=== PATIENT | female | born 1995 | race Caucasian/White ===

== ENCOUNTER → 2020-12-09 | Outpatient (CLI) | payer BC | END | disposition home or self-care (01) | LOC: US 10:00 | PROVIDERS: ATTEND Nurse Practitioner Women's Health | DX: Z33.1 Pregnant state, incidental (principal); Z3A.11 11 weeks gestation of pregnancy ==

== ENCOUNTER → 2020-12-18 | Outpatient (CLI) | payer BC ==
[2020-12-18 12:31] LABS: URINE AMPHETAMINES < 1000 (1000ng/ml); URINE BARBITURATES < 200 (200ng/ml); URINE BENZODIAZEPINES < 200 (200ng/ml); URINE CANNABINOIDS (THC) < 50 (50ng/ml); URINE COCAINE < 300 (300ng/ml); URINE METHADONE < 300 (300ng/ml); URINE OPIATES < 300 (300ng/ml)
[2020-12-18 12:32] LABS: BASO % 0.3 % (0.0-1.0); EOS # 0.1 10*3/uL (0.0-0.4); EOS % 1.2 % (1.0-4.0); HEMATOCRIT 36.5 % (37.0-47.0); LYMPH # 1.8 10*3/uL (1.3-4.4); LYMPH % 16.9 % (27.0-41.0); MEAN CELL VOLUME 76.7 fl (81.0-99.0); MEAN CORPUSCULAR HGB 22.9 pg (27.0-31.0); MEAN CORPUSCULAR HGB CONC 29.9 g/dl (33.0-37.0); MEAN PLATELET VOLUME 10.5 fl (9.6-12.3); MONO # 0.5 10*3/uL (0.1-1.0); MONO % 4.6 % (3.0-9.0); NEUT # 8.3 10*3/uL (2.3-7.9); NEUT % 76.4 % (47.0-73.0); PLATELET COUNT AUTOMATED 268 10*3/uL (130-400); RED BLOOD COUNT 4.76 10*6/uL (4.10-5.10); WHITE BLOOD COUNT 10.9 10*3/uL (4.8-10.8)
[2020-12-18 12:37] LABS: URINE PHENCYCLIDINE < 25 (25ng/ml)
[2020-12-19 05:08] LABS: HEP B CORE AB, IGM Negative (Negative); HEPATITIS B SURFACE AG Negative (Negative); HEPATITIS C VIRUS ANTIBODY <0.1 s/co (0.0-0.9)
== END | disposition home or self-care (01) ==
LOC: US 11:54
PROVIDERS: ATTEND Nurse Practitioner Women's Health
DX: Z34.82 Encounter for supervision of other normal pregnancy, second trimester (principal); Z3A.13 13 weeks gestation of pregnancy

== ENCOUNTER → 2021-01-10 | Outpatient (CLI) | payer BC | END | disposition home or self-care (01) | LOC: LAB 00:57 | PROVIDERS: ATTEND Nurse Practitioner Women's Health | DX: O99.810 Abnormal glucose complicating pregnancy (principal); Z3A.15 15 weeks gestation of pregnancy ==

== ENCOUNTER → 2021-01-29 | Outpatient (CLI) | payer BC ==
[2021-01-29 13:34] LABS: IRON 30 ug/dL (50-170); TOTAL IRON BINDING CAPACITY 436 ug/dl (250-450)
[2021-02-01 00:05] LABS: AFP MOM 2.02 (.); AFP VALUE 62.9 ng/mL (.); DIA MOM 0.56 (.); DIA VALUE 62.99 pg/mL (.); DSR (BY AGE) 1 IN 898 (.); DSR (SECOND TRIMESTER) 1 IN 10000 (.); HCG MOM 0.45 (.); HCG VALUE 7039 mIU/mL (.); INSULIN DEPENDENT DIABETES No (.); MATERNAL AGE AT EDD 27.4 yr (.); MULTIPLE GESTATION No (.); OSBR RISK 1 IN 771 (.); RACE Caucasian (.); T18 RISK Not increased (.); TEST RESULTS *Screen Negative* (.); UE3 MOM 0.85 (.); UE3 VALUE 1.29 ng/mL (.); WEIGHT 381 lbs (.)
[2021-02-05 18:06] LABS: DIRECTOR REVIEW Note (.)
== END | disposition home or self-care (01) ==
LOC: LAB 12:53
PROVIDERS: ATTEND Obstetrics & Gynecology
DX: O99.011 Anemia complicating pregnancy, first trimester (principal); Z3A.13 13 weeks gestation of pregnancy

== ENCOUNTER → 2021-04-07 | Outpatient (CLI) | payer BC ==
[2021-04-07 10:24] LABS: BASO % 0.2 % (0.0-1.0); EOS # 0.2 10*3/uL (0.0-0.4); EOS % 1.4 % (1.0-4.0); HEMATOCRIT 33.9 % (37.0-47.0); LYMPH # 2.4 10*3/uL (1.3-4.4); MEAN CELL VOLUME 78.8 fl (81.0-99.0); MEAN CORPUSCULAR HGB 24.7 pg (27.0-31.0); MEAN CORPUSCULAR HGB CONC 31.3 g/dl (33.0-37.0); MEAN PLATELET VOLUME 10.8 fl (9.6-12.3); MONO # 0.6 10*3/uL (0.1-1.0); MONO % 4.4 % (3.0-9.0); NEUT # 10.7 10*3/uL (2.3-7.9); NEUT % 76.1 % (47.0-73.0); PLATELET COUNT AUTOMATED 275 10*3/uL (130-400); RED CELL DISTRI WIDTH 16.6 % (0-14.5)
== END | disposition home or self-care (01) ==
LOC: LAB 09:48
PROVIDERS: ATTEND Obstetrics & Gynecology
DX: Z34.03 Encounter for supervision of normal first pregnancy, third trimester (principal); Z3A.28 28 weeks gestation of pregnancy